=== PATIENT | female | born 1990 | race Caucasian/White ===

== ENCOUNTER 2022-06-23 14:29 | Emergency (ER) | payer SELFPAY | END 2022-06-23 14:57 | disposition left against medical advice (07) | DRG 951 | LOC: ED 14:29 → LWOBS 14:57 | DX: Z53.21 Procedure and treatment not carried out due to patient leaving prior to being seen by health care provider (principal) ==

== ENCOUNTER 2024-05-09 23:12 | Emergency (ER) | payer OTHER ==
[~2024-05-09] VITALS: Ht 167.6 cm; Wt 68.0 kg
[2024-05-09] MEDS ORDERED: Diph, Acellular Pertussis, Tet 0.5 ML/VIAL (Tdap) SDV IM ONE (23:20)
[2024-05-09] MEDS ORDERED: SODIUM CHLORIDE 0.9% 1,000 ML IV ONE (23:20)
[2024-05-09 23:31] VITALS: BP 106/79; BP 113/78
[2024-05-09 23:32] VITALS: BP 105/74; BP 112/80
[2024-05-09 23:33] VITALS: BP 111/69
[2024-05-09 23:34] VITALS: BP 105/78; BP 107/79
[2024-05-09 23:35] VITALS: BP 107/81; BP 110/78
[2024-05-09 23:43] LABS: BASO% 0.7 % (0-3); EOS% 1.1 % (0-8); IMMATURE GRANULOCYTES 0.6 % (0.0-5.0); LYMPH% 21.2 % (15-41); MEAN CORPUSCULAR HGB 33.7 pG CALC (26.0-32.0); MEAN CORPUSCULAR HGB CONC 31.6 g/dL CAL (32.0-36.0); MONO% 3.9 % (2-13); NEUT# 10.81 thou/uL (2.00-7.15); NEUT% 72.5 % (42-76); RED BLOOD COUNT 4.15 mill/uL (4.20-5.60); RED CELL DISTRI WIDTH 13.5 % (11.5-15.5)
[2024-05-09] MEDS ORDERED: HYDROmorphone HCL 2 MG/AMP ONE (23:44)
[2024-05-09 23:45] LABS: HEMATOCRIT 44.3 % (37.0-47.0); MEAN CELL VOLUME 106.7 fL CALC (80.0-100.0)
[2024-05-09] MEDS ORDERED: HYDROmorphone HCL 2 MG/AMP IV ONE (23:45)
[2024-05-09 23:57] LABS: BILIRUBIN, TOTAL 0.6 mg/dL (0.02-1.3); CREATININE 0.7 mg/dL (0.5-1.0); POTASSIUM 3.4 mmol/l (3.5-5.1); TOTAL PROTEIN 6.8 g/dL (6.3-8.2)
[2024-05-09 23:58] LABS: ALBUMIN 4.4 g/dL (3.2-5.0)
[2024-05-10] MEDS ORDERED: LORazepam 2 MG/ML ONE (00:04)
[2024-05-10] MEDS ORDERED: LORazepam 2 MG/ML IV ONE (00:05)
[2024-05-10 00:59] LABS: ACT PARTIAL THROMBO TIME 22.5 SECONDS (20.0-32.5)
[2024-05-10 01:50] VITALS: BP 106/54
[2024-05-10 02:00] VITALS: BP 106/54
[2024-05-10] MEDS ORDERED: PROMETHAZINE HCL 25 MG/ML AMP IV ONE (02:00)
[2024-05-10] MEDS ORDERED: HYDROmorphone HCL 2 MG/AMP IV ONE (02:00)
[2024-05-10 02:15] VITALS: BP 119/55
[2024-05-10 02:18] VITALS: BP 107/60
[2024-05-10 02:22] VITALS: BP 120/63
[2024-05-10 02:45] LABS: URINE BILIRUBIN - DIPSTICK Negative (NEGATIVE); URINE BLOOD DIPSTICK Trace-lysed (NEGATIVE); URINE CLARITY Slightly Cloudy; URINE COLOR Yellow; URINE GLUCOSE - DIPSTICK Negative (NEGATIVE); URINE KETONE Negative (NEGATIVE); URINE LEUK ESTERASE Negative (Negative); URINE NITRITE - DIPSTICK Negative (Negative); URINE PH 5.5 (4.5-8.0); URINE PROTEIN - DIPSTICK 30 mg/dL (NEG-TRACE); URINE SPECIFIC GRAVITY <=1.005; URINE UROBILINOGEN - DIPSTICK 0.2 E.U./dL (0.2)
[2024-05-10 02:53] LABS: URINE RBC 0-2 RBC/hpf (0-5); URINE SQUAMOUS EPITHELIAL CELL MODERATE EPI/hpf (0-FEW)
[2024-05-10 02:54] LABS: URINE BACTERIA RARE hpf
== END 2024-05-10 01:47 | DRG 999 ==
LOC: ED 23:12
PROVIDERS: Family Medicine
PROC: 2W3RX1Z Immobilization of Left Lower Leg using Splint (ICD-10-PCS; principal; 2024-05-09)
PROC: 2W38X1Z Immobilization of Right Upper Extremity using Splint (ICD-10-PCS; 2024-05-09)
DX: S42.491A Other displaced fracture of lower end of right humerus, initial encounter for closed fracture (principal); S82.302A Unspecified fracture of lower end of left tibia, initial encounter for closed fracture; S02.609A Fracture of mandible, unspecified, initial encounter for closed fracture; S02.32XA Fracture of orbital floor, left side, initial encounter for closed fracture; S02.842A Fracture of lateral orbital wall, left side, initial encounter for closed fracture; S02.31XA Fracture of orbital floor, right side, initial encounter for closed fracture; S02.841A Fracture of lateral orbital wall, right side, initial encounter for closed fracture; S02.19XA Other fracture of base of skull, initial encounter for closed fracture; S02.40EA Zygomatic fracture, right side, initial encounter for closed fracture; S82.832A Other fracture of upper and lower end of left fibula, initial encounter for closed fracture; S02.2XXA Fracture of nasal bones, initial encounter for closed fracture; S01.81XA Laceration without foreign body of other part of head, initial encounter; S51.811A Laceration without foreign body of right forearm, initial encounter; S51.812A Laceration without foreign body of left forearm, initial encounter; F10.129 Alcohol abuse with intoxication, unspecified; V58.6XXA Passenger in pick-up truck or van injured in noncollision transport accident in traffic accident, initial encounter; V58.1XXA Passenger in pick-up truck or van injured in noncollision transport accident in nontraffic accident, initial encounter
CPT/HCPCS: 90715; J0690; J1171; J2060; J2550; Q9967